=== PATIENT | male | born 1985 | race Caucasian/White ===

== ENCOUNTER 2019-02-14 13:31 | Emergency (ER) | payer OTHER ==
[~2019-02-14] VITALS: Ht 182.9 cm; Wt 107.0 kg
[~2019-02-14 13:31] MED LIST: DOXYCYCLINE 10100 MG PO; HYDROCODONE-AP1 EAC6 PO; NOHOMEMEDICATIONS
[2019-02-14 14:00] LABS: ABSOLUTE BASOPHILS 0.1 thou/uL (0.0-0.2); ABSOLUTE EOSINOPHILS 0.1 thou/uL (0.0-0.7); ABSOLUTE LYMPHOCYTES 1.1 thou/uL (0.8-5.3); ABSOLUTE MONOCYTES 0.5 thou/uL (0.0-1.2); ABSOLUTE NEUTROPHILS 3.1 thou/uL (1.6-8.1); BASOPHILS 1.2 %; EOSINOPHILS 2.8 %; HEMATOCRIT 43.6 % (42.0-52.0); HEMOGLOBIN 15.1 gm/dL (14.0-18.0); LYMPHOCYTES 21.9 %; MCH 32.6 pg (26.0-34.0); MCHC 34.5 g/dL (28.0-37.0); MCV 94.3 fL (80.0-100.0); MONOCYTES 9.4 %; MPV 8.1 fl. (7.2-11.1); NUCLEATED RBCS 0 /100WBC; PLATELET COUNT* 279 thou/uL (150-400); POLYS 64.7 %; RBC 4.62 mil/uL (4.50-6.00); RDW-CV 12.5 % (10.5-14.5); WBC 4.8 thou/uL (4.0-11.0)
[2019-02-14 14:13] LABS: ANION GAP 10 mmol/L (7-16); BUN 15 mg/dL (7-18); CALCIUM 9.1 mg/dL (8.5-10.1); CHLORIDE 102 mmol/L (98-107); CO2 29 mmol/L (21-32); CREATININE 1.1 mg/dL (0.6-1.3); GLUCOSE 125 mg/dL (70-99); INR 0.9; POTASSIUM 3.6 mmol/L (3.5-5.1); PROTIME 9.7 Seconds (9.20-11.50); SODIUM 141 mmol/L (136-145); TROPONIN-I LEVEL <0.06 ng/mL (<0.06)
[2019-02-14 14:15] LABS: ALBUMIN 4.1 g/dL (3.4-5.0); ALKALINE PHOSPHATASE 97 U/L (46-116); LIPASE 100 U/L (73-393); NT-PRO BRAIN NAT PEPTIDE 7 pg/mL (<300); SGOT 19 U/L (15-37); SGPT 38 U/L (30-65); TOTAL BILIRUBIN 0.3 mg/dL (<0.1-1.0); TOTAL PROTEIN 8.1 g/dL (6.4-8.2)
--- NOTE | 2019-02-14 16:34 | EKG ---
[place] [address] ELECTROCARDIOGRAM REPORT Name: MARCELINO,ENDY Stephan Room: [facility]#: [id number] Admission: 02/14/19 Attend Phys: Discharge: Date of : 87 Report #: [id number] THIS REPORT FOR: //name// [facility] ED Test Date: 2019-02-14 Test Time: 13:36:55 Pat Name: ENDY BENSON Department: Room: Gender: M [employer]: RUSSELL : 1985 Requested By: Anatoly Quintero Order Number: [id number] MD: Antonio Burciaga Measurements Intervals [place] Rate: 96 P: 47 CA: 186 QRS: 37 QRSD: 112 T: 27 QT: 346 QTc: 438 Interpretive Statements Sinus rhythm Incomplete right bundle branch block ST elev, probable normal early repol pattern Compared to ECG 07/04/2017 15:10:31 Incomplete right bundle-branch block now present ST (T wave) deviation still present Electronically Signed On 02-14-2019 16:34:07 CDT by Antonio Burciaga [email or web address] <ELECTRONICALLY SIGNED> By: Antonio Burciaga MD, FAC 02/14/19 1634 [id number] Antonio Burciaga MD, [facility] /EPI
[2019-02-14 16:38] VITALS: BP 140/92
== END 2019-02-14 16:40 | disposition home or self-care (01) ==
LOC: M.ERS 13:31
PROVIDERS: Emergency Medicine
DX: R07.89 Other chest pain (principal)

== ENCOUNTER 2021-06-06 17:22 | Emergency (ER) | payer OTHER ==
[~2021-06-06] VITALS: Ht 182.9 cm; Wt 95.3 kg
[2021-06-06 17:38] VITALS: BP 122/87
[2021-06-06] MEDS ORDERED: BENZONATATE200 MG PO (19:22)
== END 2021-06-06 19:31 | disposition home or self-care (01) ==
LOC: M.ERS 17:22
DX: R05 Cough (principal); Z20.822 Contact with and (suspected) exposure to COVID-19; F17.210 Nicotine dependence, cigarettes, uncomplicated